=== PATIENT | female | born 1990 | race Caucasian/White ===

== ENCOUNTER 2022-08-17 16:57 | Emergency (ER) | payer OTHER, BC ==
[2022-08-17] MEDS ORDERED: IBUPROFEN 400 MG TAB PO STA (17:09)
[2022-08-17] MEDS ORDERED: ACETAMINOPHEN TAB 500 MG TAB PO STA (17:09)
[2022-08-17 17:11] VITALS: RESP 18
[2022-08-17] MEDS ORDERED: DIPH,PERTUS(ACELL)TETVAC-LF 0.5 ML VIAL IM ONE (17:14)
[2022-08-17] MEDS ORDERED: LIDOCAINE/EPINEPHR/TETRACAINE 5 ML BOTTLE TOPICAL ONE (17:14)
[2022-08-17] MEDS ORDERED: TOPICAL SKIN ADHESIVE 1 EACH AMP TOPICAL ONE (17:14)
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
--- NOTE | 2022-08-17 17:36 | XR ---
EXAMINATION TYPE: XR foot complete LT DATE OF EXAM: 08/17/2022 5:25 PM INDICATION: Patient age:Female; 31 years old; Reason for study: Left foot injury; [facility]. COMPARISON: No relevant priors TECHNIQUE: The left foot was examined in the AP, oblique, and lateral projections. FINDINGS: No evidence of any acute osseous pathology. No evidence of soft tissue swelling. Joints are preserve d. IMPRESSION: No evidence of acute fracture.
[2022-08-17 18:08] VITALS: BP 124/85; PULSE 102; TEMP 98.2
== END 2022-08-17 18:09 | disposition home or self-care (01) ==
LOC: EC 16:57
DX: S01.81XA Laceration without foreign body of other part of head, initial encounter (principal); S93.602A Unspecified sprain of left foot, initial encounter; S70.12XA Contusion of left thigh, initial encounter; Z23 Encounter for immunization; E07.9 Disorder of thyroid, unspecified; Z79.890 Hormone replacement therapy; V49.50XA Passenger injured in collision with unspecified motor vehicles in traffic accident, initial encounter
CPT/HCPCS: 12013; 90471; 90715; 99284

== ENCOUNTER → 2023-11-05 | Outpatient (CLI) | payer BC ==
--- NOTE | 2023-11-06 08:40 | XR ---
EXAMINATION TYPE: XR lumbar spine 2 or 3V DATE OF EXAM: 11/05/2023 6:06 PM CLINICAL INDICATION:Female, 32 years old with history of M54.9 BACK PAIN; [facility] COMPARISON: None TECHNIQUE: XR lumbar spine 2 or 3V - Frontal, lateral and coned in L5-S1 lateral views of the spine. FINDINGS: No evidence of any acute osseous pathology. No evidence of loss of vertebral body height i s seen. There is normal alignment of the lumbar vertebral bodies. Mild scattered disc space narrowing . Multilevel marginal osteophyte formation throughout the visualized spine. There is facet joint arth ropathy throughout the spine. Mild L5-S1 neural foraminal stenosis secondary to facet joint arthropat hy. IMPRESSION: 1. No acute fracture. 2. Mild multilevel disc degeneration.
--- NOTE | 2023-11-06 08:55 | XR ---
EXAMINATION TYPE: XR ribs RT w pa chest xray DATE OF EXAM: 11/05/2023 6:06 PM CLINICAL INDICATION:Female, 32 years old with history of R07.81 RIB PAIN RT SIDE; [facility] COMPARISON: TECHNIQUE: XR ribs RT w pa chest xray; Frontal and oblique views of the ribs with frontal chest radio graph. FINDINGS: The ribs have a normal appearance. No evidence of fracture. Overall, the lungs are clear. The cardiac silhouette is normal in size. The remaining osseous structures are intact. IMPRESSION: No acute osseous pathology.
== END | disposition home or self-care (01) ==
LOC: RADXRMAIN 17:46
PROVIDERS: ATTEND Pediatrics
DX: R07.81 Pleurodynia (principal); M54.9 Dorsalgia, unspecified; M51.36 Other intervertebral disc degeneration, lumbar region
CPT/HCPCS: 72100